=== PATIENT | female | born 1935 | race American Indian/Alaskan Native ===

== ENCOUNTER 2017-08-29 11:42 | Outpatient (CLI) | payer MEDICARE ==
[2017-08-29 12:38] LABS: Blood Urea Nitrogen 16 mg/dL (7-17)
--- NOTE | 2017-08-29 14:08 | Cat Scan Report ---
FINAL REPORT EXAM: CT ABDOMEN W CON HISTORY: LIVER CYST, HEPATIC STEATOSIS TECHNIQUE: Initially, CT of the abdomen was performed after the administration of intravenous contrast in the arterial phase. Subsequently, CT of the abdomen was performed in the portal venous phase. Subsequently, CT of the abdomen was performed in the delayed phase. Reconstructions were included in the coronal and sagittal planes. PRIORS: None. FINDINGS: Lower thorax: The lung bases are clear. The visualized portions of the heart are normal. There is a small hiatal hernia. Liver: The liver is normal in attenuation. The liver is normal in size measuring 14 centimeters. No intrahepatic biliary duct dilation. Multiple bilateral simple hepatic cysts are seen. There are innumerable tiny low-attenuation hepatic lesions which are too small to characterize but likely represent small cysts. No large solid enhancing hepatic lesions are seen. Small cluster of calcifications is seen in the inferior aspect of the right hepatic lobe. Gallbladder/ biliary system: No cholelithiasis. The common bile duct appears nondilated. Spleen: No splenic lesions are seen. Pancreas: No pancreatic lesions are seen. No pancreatic duct dilation. Kidneys: No renal masses, cysts or hydronephrosis. Adrenal glands: Nonspecific thickening of the left adrenal gland is seen without discrete nodule. The right adrenal gland is normal. Vasculature: There is mild ectasia of the infrarenal abdominal aorta without aneurysm. Atherosclerotic calculi are seen throughout the abdominal aorta and branch vessels. Lymph nodes: No enlarged lymph nodes are seen in the abdomen. Bowel, mesentery, peritoneum: No bowel obstruction. No free fluid or free air. The appendix was not definitively seen. Colonic diverticulosis is seen. No evidence of diverticulitis. No bowel wall thickening. Abdominal wall: No abdominal wall hernia or other subcutaneous findings. Bones: Mild grade 1 anterolisthesis of L4 on L5 is likely chronic related to degenerative change multilevel the space narrowing and facet arthropathy is seen throughout the lumbar spine. IMPRESSION: 1. Numerous simple and probable simple hepatic cysts. No large solid hepatic lesion is seen. 2. No evidence of hepatic steatosis. 3. Cluster of small calcifications in the inferior aspect of the liver. 4. Colonic diverticulosis without evidence of diverticulitis.
== END 2017-08-29 11:43 | disposition home or self-care (01) ==
LOC: CT 11:42
PROVIDERS: ATTEND Family Medicine
DX: K76.0 Fatty (change of) liver, not elsewhere classified (principal); K76.89 Other specified diseases of liver; K57.30 Diverticulosis of large intestine without perforation or abscess without bleeding; M12.88 Other specific arthropathies, not elsewhere classified, other specified site
CPT/HCPCS: 36415; 74160; 82565; 84520; Q9967